=== PATIENT | female | born 1980 | race African-American/Black ===

== ENCOUNTER 2020-08-05 11:17 | Outpatient (CLI) | payer OTHER ==
--- NOTE | 2020-08-05 11:48 | RAD ---
Lumbar spine 3 views: 08/05/2020 COMPARISON: None available HISTORY: Disability exam FINDINGS: 5 views of the lumbar spine demonstrate intact pedicles on frontal imaging. There is mild disc space narrowing at L4-5 and there is mild lower lumbar spine facet hypertrophy. No acute osseous abnormality. No anterolisthesis or retrolisthesis. IMPRESSION: No acute findings.
--- NOTE | 2020-08-05 11:50 | RAD ---
Left hip 2 views: 08/05/2020 COMPARISON: None HISTORY: Disability exam FINDINGS: There is mild superior joint space narrowing and mild lateral acetabular osteophyte formati on. There is degenerative change involving the pubic symphysis and bilateral sacroiliac joints. There is no displaced fracture or evidence of dislocation noted. IMPRESSION: Degenerative changes as detailed above. No acute fracture or dislocation seen.
== END 2020-08-05 11:18 | disposition home or self-care (01) ==
LOC: BICRAD 11:17
PROVIDERS: ATTEND Internal Medicine
DX: Z02.71 Encounter for disability determination (principal); M46.1 Sacroiliitis, not elsewhere classified; M16.12 Unilateral primary osteoarthritis, left hip
CPT/HCPCS: 72100